=== PATIENT | female | born 2000 | race Two or more races ===

== ENCOUNTER 2024-01-31 19:59 | Emergency (ER) | payer SELFPAY ==
[~2024-01-31] VITALS: Ht 167.6 cm; Wt 81.5 kg
[2024-01-31 21:02] LABS: Basophils # (auto) 0.1 10 ^3/uL (0-0.2); Basophils % (auto) 0.5 % (0.0-2.0); Eosinophils # (auto) 0.5 10 ^3/uL (0-0.8); Eosinophils % (auto) 3.9 % (0.0-7.0); Hematocrit 44.9 % (36.0-46.0); Hemoglobin 15.1 g/dL (12.2-16.2); Lymphocytes # (auto) 4.2 10 ^3/uL (0.4-5.4); Lymphocytes % (auto) 32.7 % (10.0-50.0); Mean Corpuscular Hgb Conc. 33.7 g/dL (32.0-36.0); Mean Corpuscular Volume 86.1 fL (80.0-100.0); Monocytes % (auto) 7.9 % (0.0-12.0); Nucleated Red Blood Cells % 0.1 %; Red Blood Cells 5.21 10^6/uL (4.0-5.20); Red Cell Distribution Width 13.2 % (11.8-14.3); White Blood Cell 12.7 10^3/uL (4.4-10.8)
[2024-01-31 21:19] LABS: Urine Bacteria FEW /hpf (None Seen); Urine Blood TRACE /uL (Negative); Urine Clarity Turbid (Clear); Urine Color Light-Yellow (Yellow); Urine Protein, UAD Negative (Negative); Urine Specific Gravity 1.019 (1.001-1.035); Urine Urobilinogen Normal (Negative); Urine WBC 2 /hpf (0 - 5)
[2024-01-31 21:22] LABS: Alanine Aminotransferase 40 U/L (7-40); Albumin 4.8 g/dL (3.2-4.8); Alkaline Phosphatase 99 U/L (46-116); Anion Gap 5 (5-15); Aspartate Aminotransferase 25 U/L (13-40); BUN/Creatinine Ratio 14.9 (10.0-20.0); Bilirubin, Total 0.5 mg/dL (0.2-1.0); Blood Urea Nitrogen 10 mg/dL (9-23); Calcium 10.1 mg/dL (8.7-10.4); Carbon Dioxide 27 mmol/L (20-30); Chloride 106 mmol/L (98-107); Glucose 109 mg/dL (74-106); Lipase 39 U/L (12-53); Potassium 3.8 mmol/L (3.5-5.1); Sodium 138 mmol/L (136-145)
[2024-01-31 21:23] LABS: Total Protein 8.4 g/dL (5.7-8.2)
[2024-01-31] MEDS: SODIUM CHLORIDE 0.9% 1,000 ML IV ONE (22:54)
[2024-01-31] MEDS: ONDANSETRON HCL 4 MG/2 ML VIAL IV ONE (22:54)
[2024-01-31] MEDS: MORPHINE SULFATE 4 MG/ML SYR/VIAL IV ONE (22:55)
[2024-01-31] MEDS: KETOROLAC TROMETH 30 MG/ML 1ML VIAL IV ONE (23:11)
[2024-01-31] MEDS ORDERED: IBUP-1456 PO (23:12)
[2024-01-31] MEDS ORDERED: CEPH500C PO (23:12)
[2024-01-31] MEDS ORDERED: ACET-1304 PO (23:12)
[2024-01-31 23:26] VITALS: BP 140/80; PULSE 101; RESP 18; TEMP 98.7
[2024-01-31 23:27] VITALS: O2SAT 98
== END 2024-01-31 23:35 | disposition home or self-care (01) ==
LOC: ER 19:59
DX: N39.0 Urinary tract infection, site not specified (principal); R10.2 Pelvic and perineal pain; R10.31 Right lower quadrant pain; R10.32 Left lower quadrant pain; Z79.899 Other long term (current) drug therapy
CPT/HCPCS: 36415; 74176; 76856; 80053; 81001; 83690; 84702; 85025; 96361; 96374; 96375; 99285; J1885; J2270; J2405; J7030